=== PATIENT | male | born 1985 | race Two or more races ===

== ENCOUNTER 2023-09-24 10:37 | Emergency (ER) | payer MEDICAID, OTHER ==
[~2023-09-24] VITALS: Ht 170.2 cm; Wt 92.0 kg
[2023-09-24] MEDS ORDERED: HYDROmorphone HCL 2 MG/ML VL/or syr IV ONE (11:30)
[2023-09-24 11:34] VITALS: TEMP 97.8; O2SAT 98
[2023-09-24] MEDS ORDERED: IOHEXOL 300 MG/ML 100ML BOTTLE IJ ONE (11:41)
[2023-09-24] MEDS ORDERED: SODIUM CHLORIDE 0.9% 1,000 ML IVB ONE (11:45)
[2023-09-24] MEDS ORDERED: ONDANSETRON HCL 4 MG/2 ML VIAL IV ONE (11:45)
[2023-09-24 12:00] VITALS: BP 153/111; PULSE 78; RESP 18
[2023-09-24] MEDS ORDERED: cloNIDine HCL 0.1 MG TAB PO ONE (13:15)
[2023-09-24 13:18] LABS: Basophils # (auto) 0.1 10 ^3/uL (0-0.2); Basophils % (auto) 1.2 % (0.0-2.0); Eosinophils # (auto) 1.3 10 ^3/uL (0-0.8); Eosinophils % (auto) 10.5 % (0.0-7.0); Hemoglobin 14.2 g/dL (13.5-17.5); Lymphocytes # (auto) 2.7 10 ^3/uL (0.4-5.4); Lymphocytes % (auto) 21.6 % (10.0-50.0); Mean Corpuscular Hemoglobin 29.3 pg (28.0-32.0); Mean Corpuscular Hgb Conc. 33.7 g/dL (32.0-36.0); Mean Corpuscular Volume 87.1 fL (80.0-100.0); Monocytes # (auto) 0.9 10 ^3/uL (0-1.3); Monocytes % (auto) 7.3 % (0.0-12.0); Neutrophils # (auto) 7.3 10 ^3/uL (1.6-8.6); Neutrophils % (auto) 59.4 % (37.0-80.0); Nucleated Red Blood Cells % 0.1 %; Red Blood Cells 4.83 10^6/uL (4.5-5.90); Red Cell Distribution Width 14.4 % (11.8-14.3); White Blood Cell 12.3 10^3/uL (4.4-10.8)
[2023-09-24 13:29] LABS: Chloride 111 mmol/L (98-107); Potassium 3.8 mmol/L (3.5-5.1); Sodium 139 mmol/L (136-145)
[2023-09-24 13:30] LABS: Anion Gap 6 (5-15); Calcium 8.6 mg/dL (8.7-10.4); Carbon Dioxide 22 mmol/L (20-30)
[2023-09-24 13:35] LABS: BUN/Creatinine Ratio 12.1 (10.0-20.0); Blood Urea Nitrogen 8 mg/dL (9-23); Glucose 93 mg/dL (74-106)
[2023-09-24 14:25] LABS: Blood Alcohol < 3.0 mg/dL (<10)
[2023-09-24] MEDS ORDERED: NAPR1TAB24 PO (16:28)
[2023-09-24] MEDS ORDERED: CYCL-837 PO (16:28)
[2023-09-24] MEDS ORDERED: ACET-1304 PO (16:28)
== END 2023-09-24 16:53 | disposition home or self-care (01) ==
LOC: ER 10:37
DX: R07.81 Pleurodynia (principal); M54.2 Cervicalgia; M79.605 Pain in left leg; V43.52XA Car driver injured in collision with other type car in traffic accident, initial encounter; Y93.89 Activity, other specified; Y92.89 Other specified places as the place of occurrence of the external cause; Y99.8 Other external cause status
CPT/HCPCS: 36415; 70450; 71260; 72125; 74177; 80048; 80320; 85025; 96361; 96374; 96375; 99285; J1170; J2405; J7030; Q9967